=== PATIENT | female | born 1995 | race Two or more races ===

== ENCOUNTER 2019-02-27 19:13 | Inpatient (IN) | payer OTHER ==
[~2019-02-27] VITALS: Ht 162.6 cm; Wt 73.4 kg
[~2019-02-27 19:13] MED LIST: CEPH-443 PO; DIPH-444 PO; PNV11TAB PO
[2019-02-27 20:24] VITALS: Ht 162.6 cm; Wt 73.4 kg
[2019-02-27 20:25] VITALS: BP 99/66; PULSE 122; RESP 18
[2019-02-27] MEDS ORDERED: DEXTROSE 5%-LR 1,000 ML IV SCH (21:10)
--- NOTE | 2019-02-27 21:19 | TRIAGE ---
OB Triage Datetime Report Generated by CPN: 02/27/2019 21:18 Datetime: 02/27/2019 20:34 Vaginal Exam Dilatation (cms): 2.0 Effacement (%): 70 Station: -3 Exam By: Rehana Ford RN Membrane Status: Ruptured Membranes Ruptured Date/Time: 02/27/2019 18:15 Membranes Rupture Method: Spontaneous Amniotic Fluid Color: Clear Amniotic Fluid Amount: Moderate Amniotic Fluid Odor: Normal Vaginal Bleeding: None Pool: Positive Nitrazine: Positive ROM Test Kit: Collected Cervix, Consistency: Moderate Cervix, Position: Posterior Presentation 'A': Cephalic Datetime: 02/27/2019 20:25 Pain Assessment Pain Scale: 3 Pain Presence: Intermittent Pain Type: Cramping Pain Location: Abdomen Datetime: 02/27/2019 19:50 Time of Arrival: 02/27/2019 19:05 EGA: 39.0 Arrived By: Wheelchair Arrived From: Home Chief Complaint: Leaking Movement: Present Contractions: Denies/Absent Rupture of Membranes: Ruptured Vaginal Bleeding: None Vaginal Discharge: Denies Recent Sexual Intercouse: Denies Abdominal Trauma: Not Applicable Patient Complaints: Other Time Provider Notified: 02/27/2019 20:00 Provider Notified: Dr. Galvez Initial Plan: CEFM, VE, Sterile spec Datetime: 02/27/2019 19:40 Membrane Status: Ruptured Datetime: 02/27/2019 19:34 Stage of : OB Triage Assessment Type: Triage Maternal Assessment Level of Consciousness: Keenly Alert, Responsive DTR's/Clonus: DTRs 2+; No Clonus Headache: Denies Blurred Vision: No Respiratory Effort: Unlabored; Regular Rhythm; Equal Expansion Breath Sounds, Left: Clear and Equal Breath Sounds, Right: Clear and Equal Nausea/Vomiting: Denies RUQ Epigastric Pain: Denies Facial Edema: None Temperature Route: Oral Fall Risk Assessment History of Falling: (0) No Secondary Diagnosis: (0) No Ambulatory Aid: (0) Bedrest/Nurse Assist IV Therapy: (0) No Gait: (0) Normal/Bedrest/Immobile Mental Status: (0) Oriented to Own Ability Fall Score: 0 Fall Risk Score Definition: No Risk: No action required Pain Assessment Pain Scale: 0 Pain Presence: None/Denies Pain Type: N/A
[2019-02-27] MEDS ORDERED: CARBOPROST 250 MCG INJ IM PRN (21:30)
[2019-02-27] MEDS ORDERED: OXYTOCIN 30 UNITS/LR 500 ML IV SCH ×3 (21:30)
[2019-02-27] MEDS ORDERED: OXYTOCIN 30 UNITS/LR 500 ML IV PRN (21:30)
[2019-02-27] MEDS ORDERED: IBUPROFEN 600 MG TAB PO PRN (21:30)
[2019-02-27] MEDS ORDERED: BUTORPHANOL 2 MG INJ IV PRN (21:30)
[2019-02-27] MEDS ORDERED: METHYLERGONOVINE 0.2 MG INJ IM PRN (21:30)
[2019-02-27] MEDS ORDERED: LIDOCAINE 1% (MPF) 30 ML INJ INJ PRN (21:30)
[2019-02-27] MEDS ORDERED: MISOPROSTOL 200 MCG TAB PR PRN (21:30)
[2019-02-27] MEDS ORDERED: AMPICILLIN 2 GM/NS (PMX) 100 ML IV ONE (22:00)
[2019-02-27] MEDS: LACTATED RINGER'S 1,000 ML IV SCH (22:08)
--- NOTE | 2019-02-28 00:20 | PREAC ---
Date/Time of Note Date/Time of Note DATE: 02/28/19 TIME: : Anesthesia Eval and Record Evaluation Time Pre-Procedure Interview DATE: 02/28/19 TIME: 00:19 Age 23 Sex female NPO: 8 hrs Preoperative diagnosis laboe pain Planned procedure epidural Past Medical History Past Medical History: Includes : Gestational age: (39.2), Gestational diabetes Surgery & Anesthesia Issues No known issue Meds Anticoagulation: No Beta Dasha within 24 hr: No Reason Beta Dasha not given: Pt. not on B-Dasha Reported Medications Diphenhydramine Hcl* (Unisom*) 50 Mg Capsule, 25 MG PO HS PRN for SLEEP, CAP 02/27/19 Cephalexin* (Keflex*) 500 Mg Capsule, 500 MG PO BID, #21 CAP 02/27/19 [id number] ( 19) 1 Each Tablet, 1 TAB PO DAILY, TAB 02/27/19 Current Medications Lactated Ringer's 1,000 ml @ 125 mls/hr Q8H IV Last administered on 02/27/19at 22:08; Admin Dose 125 MLS/HR; Start 02/27/19 at 21:10 Dextrose/Lactated Ringer's 1,000 ml @ 125 mls/hr Q8H IV ; Start 02/27/19 at 21:10 Ampicillin 50 ml @ 100 mls/hr Q4H IV ; Start 02/28/19 at 02:00 Butorphanol Tartrate (Stadol) 2 mg Q2H PRN IV .PAIN SCALE 6-10; Start 02/27/19 at 21:30 Lidocaine (Xylocaine 1% (Mpf)) 30 ml ONCE PRN INJ .EPISIOTOMY; Start 02/27/19 at 21:30 Oxytocin/Lactated Ringer's 500 ml @ 500 mls/hr ONCE POST IV ; Start 02/27/19 at 21:30 Oxytocin/Lactated Ringer's 500 ml @ 125 mls/hr POST IV ; Start 02/27/19 at 21:30 Ibuprofen (Motrin) 600 mg ONCE PRN PO .PAIN 1-5; Start 02/27/19 at 21:30 Oxytocin/Lactated Ringer's 500 ml @ 0 mls/hr ONCE PRN IV .VAGINAL BLEEDING; Start 02/27/19 at 21:30 Methylergonovine Maleate (Methergine) 0.2 mg ONCE PRN IM .VAGINAL BLEEDING; Start 02/27/19 at 21:30 Carboprost Tromethamine (Hemabate) 250 mcg ONCE PRN IM .VAGINAL BLEEDING; Start 02/27/19 at 21:30 Misoprostol (Cytotec) 1,000 mcg ONCE PRN IA .VAGINAL BLEEDING; Start 02/27/19 at 21:30 Oxytocin/Lactated Ringer's 500 ml @ 0 mls/hr FOR AUGMENTATION IV ; Start 02/27/19 at 21:30 Meds reviewed: Yes Allergies Coded Allergies: No Known Allergy (Unverified , 02/27/19) Allergies Reviewed: Yes Labs/Studies Labs Reviewed: Reviewed by anesthesiologist Result Diagram: 02/27/19212902/[id number]/192129 Laboratory Tests 02/27/19 21:30 Blood Bank Test 02/27/19 21:30 Antibody Screen NEGATIVE Blood Type B POSITIVE Rh Immune Globulin Candidate NO test: Positive Studies: ECG (n/a), CXR (n/a) Pre-procedure Exam Last vitals Vital Signs Date Temp Pulse Resp B/P (MAP) Pulse Ox O2 O2 Flow FiO2 Time Delivery Rate 02/27/19 98.4 122 18 99/66 (77) 98 Room Air 20:25 Airway: Adequate mouth opening Mallampati: Mallampati I Teeth: Normal Lung: Normal Heart: Normal ASA Physical Status ASA physical status: 2 Emergency: None Planned Anesthetic Neuraxial: Epidural Pre-operative Attestations Prior to commencing anesthesia and surgery, the patient was re-evaluated, there was verification of: *The patient's identity *The results of appropriate recent lab work and preoperative vital signs *The above evaluation not changing prior to induction *Anesthetic plan, risk benefits, alternative and complications discussed with patient/family; questions answered; patient/family understands, accepts and wi shes to proceed. SAE TORO MD Feb 28, 2019 00:20
[2019-02-28] MEDS ORDERED: FENTAnyl 2MCG/ML-ROPIV 0.2% 100 ML ONE (00:34)
[2019-02-28] MEDS: LACTATED RINGER'S 1,000 ML IV SCH ×2 (00:48→06:37)
[2019-02-28] MEDS ORDERED: DIPHENHYDRAMINE 50 MG INJ IV PRN (01:00)
[2019-02-28] MEDS ORDERED: FENTAnyl 2MCG/ML-ROPIV 0.2% 100 ML BAG EPI SCH (01:00)
[2019-02-28] MEDS ORDERED: NALOXONE (0.4 MG/ML) INJ IV PRN (01:00)
[2019-02-28] MEDS ORDERED: ONDANSETRON 4 MG INJ IV PRN (01:00)
--- NOTE | 2019-02-28 01:02 | PAC ---
Date/Time of Note Date/Time of Note DATE: 02/28/19 TIME: 01:00 Post-Anesthesia Notes Post-Anesthesia Note Last documented vital signs Vital Signs Date Temp Pulse Resp B/P (MAP) Pulse Ox O2 O2 Flow FiO2 Time Delivery Rate 02/28/19 98.4 73 18 105//66 98 Room Air 20:25 Activity: WNL Respiratory function: WNL Cardiovascular function: WNL Mental status: Baseline Pain reasonably controlled: Yes Hydration appropriate: Yes Nausea/Vomiting absent: No SAE TORO MD Feb 28, 2019 01:01
[2019-02-28] MEDS: AMPICILLIN 1 GM/NS (PMX) 50 ML IV SCH ×2 (01:57→06:02)
--- NOTE | 2019-02-28 05:49 | HP ---
Date/Time of Note Date/Time of Note DATE: 02/28/19 TIME: 05:45 OB - History Hx of Present Free Text/Dictation Late entry note for exam for February 27, 2019 : 1 Para: 0 Care: Good Care Other Concerns: 23-year-old G1, P0 with IUP at 39 weeks and care with [facility] presented with complaint of spontaneous rupture membrane and she was noted to be grossly ruptured. Nitrazine positive, pooling positive. 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 Antepartum course was completed by GDM A1 well controlled. Patient was in early labor. She was 2 cm dilated/70/-3 vertex presentation. She was admitted for labor augmentation. Past Family/Social History * Past Medical, Surgical, Family and Obstetric Histories reviewed from chart. records partially available. labs were not completed. Patient had a history of cutting in the past. Denies any past medical history except gestational diabetes or surgery history. Denies any allergy history. Denies any significant family history. OB Admission Exam Vital Signs Vital Signs Vital Signs Date Temp Pulse Resp B/P (MAP) Pulse Ox O2 O2 Flow FiO2 Time Delivery Rate 02/27/19 98.4 122 18 99/66 (77) 98 Room Air 20:25 Physical Exam HEENT: WNL Lungs: Clear Abdomen: WNL Reflexes: Normal Cervical Dilatation: 2cm Effacement: 75% Station: -3 Amniotic Fluid: Clear Heart Rate: 130's Accelerations: Accelerations Present Decelerations: No Decelerations Varibility: Moderate Contractions on Admission: 6-10 Minutes Apart Intensity: Moderate Last 72 hourBlood Glucose Bedside Glucose - 72 Hours Test 02/28/19 01:56 Bedside Glucose 137 mg/dL (70-220) Last 72 hours Lab Results CBC & BMP 02/27/19 21:30 OB Assessment/Plan Other Assessment: IUP at 39 weeks Status post spontaneous rupture membrane No evidence of chorioamnionitis Early labor GDM A1 diet-controlled 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
[2019-02-28] MEDS ORDERED: GENTAMICIN 120 MG/NS (PMX) 100 ML IVPB ONE (09:00)
[2019-02-28] MEDS ORDERED: ACETAMINOPHEN 325 MG TAB PO ONE (09:30)
[2019-02-28 11:30] VITALS: BP 105/60; PULSE 72; RESP 18
[2019-02-28] MEDS ORDERED: OXYTOCIN 30 UNITS/LR 500 ML IV SCH (13:08)
[2019-02-28] MEDS ORDERED: NACL 0.9% 3 ML SYG IV SCH (13:30)
[2019-02-28] MEDS ORDERED: CARBOPROST 250 MCG INJ IM PRN (13:30)
[2019-02-28] MEDS ORDERED: METHYLERGONOVINE 0.2 MG INJ IM PRN (13:30)
[2019-02-28] MEDS ORDERED: OXYTOCIN 30 UNITS/LR 500 ML IV PRN (13:30)
[2019-02-28] MEDS ORDERED: HYDROCODONE/APAP (5/325) TAB PO PRN (13:30)
[2019-02-28] MEDS ORDERED: MISOPROSTOL 200 MCG TAB PR PRN (13:30)
[2019-02-28 16:00] VITALS: BP 110/66; PULSE 74; RESP 20
[2019-02-28 16:30] VITALS: BP 96/60; PULSE 90; RESP 18
[2019-02-28] MEDS ORDERED: BENZOCAINE 20% 56 ML SPRAY TOP PRN (16:30)
[2019-02-28] MEDS ORDERED: WITCH HAZEL/GLYCERIN PAD PR PRN (16:30)
[2019-02-28] MEDS ORDERED: LANOLIN HPA 1 PKT TOP PRN (16:30)
[2019-02-28] MEDS: IBUPROFEN 600 MG TAB PO SCH ×2 (18:41→23:33)
[2019-02-28 19:45] VITALS: BP 96/59; PULSE 91; RESP 18
--- NOTE | 2019-02-28 20:39 | LDN ---
Date/Time of Note Date/Time of Note DATE: 02/28/19 TIME: 20:37 Delivery Summary February 28, 2019 Weeks of Gestation 39 weeks Placenta Delivered: Spontaneously Meconium: none Episiotomy: No Indication for episiotomy N/A Perineal laceration: 2 Laceration repair: Second-degree perineal laceration and first-degree labial laceration in the right side repaired using 301 2-0 chromic. Anesthesia type: Epidural Estimated blood loss: 300 Sponge & Needle done & correct: Yes All needle counts correct: Yes Any foreign bodies felt in the: No Infant Delivery Information Sex Sex: female Apgars 1 Minute: 9 5 Minute: 9 Suctioning Nose & mouth suctioned at stewart: Yes Delee suction performed: Yes Umbilical Cord Umbilical cord with: 3 Vessels Cord presentations: no nuchal cord Cord Blood was obtained: Yes ROXIE ATKINSON MD Feb 28, 2019 20:39
[2019-03-01 04:06] VITALS: BP 100/51; PULSE 97; RESP 18
[2019-03-01] MEDS: IBUPROFEN 600 MG TAB PO SCH ×4 (05:26→23:34)
[2019-03-01 08:00] VITALS: BP 95/57; PULSE 81; RESP 18
[2019-03-01] MEDS: SENNA/DOCUSATE NA (8.6MG/50MG) TAB PO PRN ×2 (12:07→21:06)
[2019-03-01 19:30] VITALS: BP 106/67; PULSE 84; RESP 18
--- NOTE | 2019-03-01 21:39 | QN ---
Documentation Comment no c/o except baby is poor feeding and neck and arm pain most likely from 2nd stage of labor VSS afebrile fundus firm lochia min calf neg for tenderness A stable s/p #1 P discharge home in am HARESH WINN MD Mar 01, 2019 21:39
[2019-03-02 04:10] VITALS: BP 101/70; PULSE 96; RESP 18
[2019-03-02] MEDS: IBUPROFEN 600 MG TAB PO SCH ×3 (05:32→13:32)
[2019-03-02 08:15] VITALS: BP 103/68; PULSE 79; RESP 18
[2019-03-02] MEDS: SENNA/DOCUSATE NA (8.6MG/50MG) TAB PO PRN (08:47)
[2019-03-02] MEDS ORDERED: MAGNESIUM HYDROXIDE 30ML CUP PO ONE (13:30)
[2019-03-02] MEDS ORDERED: MAGNESIUM HYDROXIDE 30ML CUP PO PRN (13:30)
[2019-03-02 16:20] VITALS: BP 106/66; PULSE 77; RESP 18
--- NOTE | 2019-03-02 16:58 | PN ---
Date/Time of Note Date/Time of Note DATE: 03/02/19 TIME: 16:57 OB Subjective Subjective Subjective PPD# 2 Patient is doing well. She denies nausea, vomiting, shortness of breath, chest pain, headache. She has been ambulating without difficulty, tolerating regular diet. Pain is well controlled on current medications OB Objective Objective Objective Vital Signs Date Temp Pulse Resp B/P (MAP) Pulse Ox O2 O2 Flow FiO2 Time Delivery Rate 03/02/19 Room Air 12:15 03/02/19 98.6 79 18 103/68 08:15 (80) 02/27/19 98 20:25 General: AAO X 3, comfortable, NAD, appropriate mood and affect. ABD: +BS. Soft, non-tender. Uterus 2 cm below umbilicus Flank: No CVA tenderness (B/L) LE: Mild edema. No clubbing, cyanosis, thigh or calf tenderness (B/L). Homans 'sign is negative OB Assessment/Plan Other plan: 23-year-old s/p normal vaginal delivery. PPD#2 - AF, VSS - Contraception methods with R/B/A/FR discussed - Continue care - Hemoglobin 10.2 - Discharge home - Rx and instruction given - Follow up in 2 and 6 weeks at clinic HOOD ARORA Mar 02, 2019 16:58
--- NOTE | 2019-03-02 17:00 | DS ---
Date/Time of Note Date/Time of Note DATE: 03/02/19 TIME: 16:59 Obstetrical Discharge Record Final Diagnosis Final Diagnosis: Term delivered Other Final Diagnosis 23-year-old s/p normal vaginal delivery. PPD#2. course was unremarkable. She is ambulating and tolerating regular diet. She is voiding without difficulty. Pain is controlled on current medication. - AF, VSS - Contraception methods with R/B/A/FR discussed - Continue care - Hemoglobin 10.2 - Discharge home - Rx and instruction given - Follow up in 2 and 6 weeks at clinic Vaginal Delivery Obstetrical Delivery: Spontaneous Condition on Discharge Physical Assessment Voiding: Yes Bowel Movement: Yes Breast: Soft, non-tender Fundus: Firm Calf Tenderness: No Patient Condition: Stable HOOD ARORA Mar 02, 2019 17:00
== END 2019-03-02 17:53 | disposition home or self-care (01) | DRG 807 ==
LOC: OBT 19:13 → L-D 19:14 → OBT 21:00 → L-D 21:00 → MS1 02-28 17:12
PROVIDERS: ADMIT Obstetrics & Gynecology Obstetrics; ATTEND Obstetrics & Gynecology Obstetrics
PROC: 10E0XZZ Delivery of Products of Conception, External Approach (ICD-10-PCS; principal; 2019-02-28)
PROC: 0KQM0ZZ Repair Perineum Muscle, Open Approach (ICD-10-PCS; 2019-02-28)
DX: O24.420 Gestational diabetes mellitus in childbirth, diet controlled (principal); O99.824 Streptococcus B carrier state complicating childbirth; O70.1 Second degree perineal laceration during delivery; Z37.0 Single live birth; Z3A.39 39 weeks gestation of pregnancy
CPT/HCPCS: 62322; 76815; 82947; 82962; 84112; 85025; 85610; 85730; 86592; 86762; 86850; 86900; 86901; 87086; 87340; 99464; G0463; J0290; J1580; J2405; J2590; J3010; J7120; J7121